=== PATIENT | male | born 1935 | race Hispanic/Latino ===

== ENCOUNTER 2018-10-27 10:29 | Outpatient (CLI) | payer MEDICARE, BC | END 2018-10-27 10:30 | disposition home or self-care (01) | LOC: C.PAT 10:29 | DX: I73.9 Peripheral vascular disease, unspecified (principal) ==

== ENCOUNTER 2018-10-30 07:13 | Day surgery (SDC) | payer MEDICARE, BC | END 2018-10-30 17:30 | disposition home or self-care (01) | LOC: C.SPRAD 07:13 | DX: I73.9 Peripheral vascular disease, unspecified (principal) ==